=== PATIENT | female | born 1970 | race Caucasian/White ===

== ENCOUNTER 2022-07-07 13:01 | Emergency (ER) | payer MEDICARE, MEDICAID ==
[2022-07-07] MEDS ORDERED: LORazepam 2 MG/ML SYR.(CARPUJECT) ONE (13:45)
[2022-07-07 13:56] LABS: #Eosinphils 0.2 thou/uL (0.0-0.7); #Lymphocytes 1.7 thou/uL (1.20-3.40); #Monocytes 0.4 thou/uL (0.11-0.59); #Neutrophils 2.8 thou/uL (1.40-6.50); %Basophils 0.6 % (0.0-1.0); %Eosinophils 3.1 % (0.0-10.0); %Lymphocytes 33.9 % (21.0-51.0); %Monocytes 6.9 % (0.0-10.0); %Neutrophils 55.5 % (42.0-75.0); Hemoglobin 10.4 g/dL (12.0-16.0); Mean Corpuscular HGB CONC 33.8 g/dL (32.0-36.0); Mean Corpuscular Volume 91.7 fl (78.0-98.0); Mean Platelet Volume 8.1 fL (7.4-10.4); Platelet Count 206 10x3/uL (130-400); RBC Distribution Width 11.2 % (11.5-14.5); Red Blood Cell (RBC) Count 3.34 mill/uL (4.20-5.40); White Blood Cell (WBC) Count 5.1 10x3/uL (4.8-10.8)
[2022-07-07] MEDS ORDERED: Ketorolac Tromethamine 30 MG/ML VIAL ONE (14:08)
[2022-07-07] MEDS ORDERED: Acetaminophen 500 MG TAB ONE (14:08)
[2022-07-07 14:18] LABS: ALT (SGPT) 10 U/L (8-55); AST (SGOT) 13 U/L (5-34); Albumin 3.7 g/dL (3.5-5.0); Alkaline Phosphatase 76 U/L (40-110); Anion Gap 11 mmol/L (10-20); BUN (Urea Nitrogen) 15 mg/dL (9.8-20.1); Bilirubin, Total 0.7 mg/dL (0.2-1.2); Calc. Creatinine Clearance 0 mL/min (70-130); Calcium 8.3 mg/dL (7.8-10.44); Carbon Dioxide 23 mmol/L (22-29); Chloride 107 mmol/L (98-107); Estimated GFR 97; Globulin 2.7 g/dL (2.4-3.5); Glucose 113 mg/dL (70-105); Potassium 4.2 mmol/L (3.5-5.1); Protein, Total 6.4 g/dL (6.0-8.3); Sodium 137 mmol/L (136-145)
== END 2022-07-07 14:55 | disposition home or self-care (01) ==
LOC: ERS 13:01
DX: R56.9 Unspecified convulsions (principal); D64.9 Anemia, unspecified; Z79.899 Other long term (current) drug therapy
CPT/HCPCS: 36415; 80053; 80177; 84146; 85025; 93005; 94760; 96374; 96375; J1885

== ENCOUNTER 2022-07-10 14:09 | Emergency (ER) | payer MEDICARE, MEDICAID ==
[2022-07-10] MEDS ORDERED: Ketorolac Tromethamine 30 MG/ML VIAL ONE ×2 (16:14→16:24)
[2022-07-10] MEDS ORDERED: Diazepam 10 MG/2 ML SYRINGE ONE (16:30)
[2022-07-10 16:56] LABS: #Eosinphils 0.2 thou/uL (0.0-0.7); #Monocytes 0.6 thou/uL (0.11-0.59); #Neutrophils 5.1 thou/uL (1.40-6.50); %Basophils 0.5 % (0.0-1.0); %Eosinophils 2.3 % (0.0-10.0); %Lymphocytes 33.2 % (21.0-51.0); %Monocytes 6.8 % (0.0-10.0); %Neutrophils 57.3 % (42.0-75.0); Hemoglobin 11.7 g/dL (12.0-16.0); Mean Corpuscular HGB CONC 33.8 g/dL (32.0-36.0); Mean Corpuscular Hemoglobin 30.7 pg (27.0-31.0); Mean Platelet Volume 8.2 fL (7.4-10.4); Platelet Count 243 10x3/uL (130-400); RBC Distribution Width 11.2 % (11.5-14.5); Red Blood Cell (RBC) Count 3.81 mill/uL (4.20-5.40); White Blood Cell (WBC) Count 8.9 10x3/uL (4.8-10.8)
[2022-07-10 17:08] LABS: Bilirubin Negative (Negative); Blood, Urine Negative (Negative); Clarity Clear (Clear); Glucose, Urine (Dipstick) Normal (Negative); Ketone, Urine Negative (Negative); Leukocyte Negative Leu/uL (Negative); Nitrite Negative (Negative); Protein, Urine (Dipstick) Negative (Neg-Trace); Specific Gravity, Urine 1.012 (1.002-1.036); Urobilinogen Normal mg/dL (Less than 2); pH, Urine 5.5 (5.0-9.0)
[2022-07-10 18:40] LABS: Albumin 3.7 g/dL (3.5-5.0)
[2022-07-10 18:41] LABS: Calcium 8.8 mg/dL (7.8-10.44); Chloride 108 mmol/L (98-107); Sodium 138 mmol/L (136-145)
[2022-07-10 18:42] LABS: Globulin 2.7 g/dL (2.4-3.5); Glucose 96 mg/dL (70-105); Protein, Total 6.4 g/dL (6.0-8.3)
[2022-07-10 18:44] LABS: Anion Gap 13 mmol/L (10-20); Bilirubin, Total 0.5 mg/dL (0.2-1.2); Carbon Dioxide 21 mmol/L (22-29)
[2022-07-10 18:45] LABS: Alkaline Phosphatase 79 U/L (40-110); Calc. Creatinine Clearance 0 mL/min (70-130); Estimated GFR 94
[2022-07-10 18:46] LABS: BUN (Urea Nitrogen) 17 mg/dL (9.8-20.1)
[2022-07-10 18:47] LABS: AST (SGOT) 23 U/L (5-34)
[2022-07-10 18:48] LABS: ALT (SGPT) 14 U/L (8-55)
== END 2022-07-10 18:46 | disposition home or self-care (01) ==
LOC: ERS 14:09
DX: D64.9 Anemia, unspecified (principal); M54.50 Low back pain, unspecified; R56.9 Unspecified convulsions
CPT/HCPCS: 36415; 70450; 71046; 80053; 81003; 84146; 85025; 96374; J1885; J3360

== ENCOUNTER 2022-07-16 12:50 | Emergency (ER) | payer MEDICARE, MEDICAID ==
[2022-07-16] MEDS ORDERED: Acetaminophen 500 MG TAB ONE (13:29)
[2022-07-16] MEDS ORDERED: Ketorolac Tromethamine 30 MG/ML VIAL ONE (13:29)
[2022-07-16] MEDS ORDERED: Ondansetron PF 4 MG/2 ML Vial ONE (13:29)
[2022-07-16] MEDS ORDERED: hydrOXYzine 25 MG TAB ONE (13:49)
== END 2022-07-16 14:14 | disposition home or self-care (01) ==
LOC: ERS 12:50
DX: R56.9 Unspecified convulsions (principal)
CPT/HCPCS: 96374; 96375; J1885; J2405